=== PATIENT | male | born 2000 | race Caucasian/White ===

== ENCOUNTER 2023-05-12 05:02 | Emergency (ER) | payer OTHER, SELFPAY ==
[2023-05-12 05:05] VITALS: BP 165/76; PULSE 88; RESP 16; TEMP 36.8; O2SAT 99
--- NOTE | 2023-05-12 05:19 | ED.DENTAL ---
HPI - Dental/Oral General Chief complaint: Dental/Oral Stated complaint: dental abcess Time Seen by Provider: 05/12/23 05:14 History of Present Illness HPI Narrative: Patient noticed that about a day and a half ago he started having some swelling to the left lower jaw, he has a bad tooth. Cannot remember the last time he saw dentist Related Data Allergies Allergy/AdvReac Type Severity Reaction Status Date / Time No Known Allergies Allergy Verified 05/12/23 05:17 Review of Systems Review of Systems: CONST: No fever. HEENT: Tooth pain/jaw swelling C/V: No chest pain RESP: No difficulty breathing GI: No nausea/vomiting : No dysuria. M/S: No joint pain. SKIN: No rash. NEURO: [No focal numbness or weakness] Exam Narrative: EXAMINATION OF ORGAN SYSTEMS/BODY AREAS: Constitutional: Vital signs per nursing GENERAL:[No acute distress, non-toxic appearing.] HEAD: Slight mandibular swelling EYES: EOMI, conjunctiva normal ENT: Left lower molar caries, some swelling to left lower jaw without any fluctuance LUNGS: Nonlabored breathing. HEART: [Regular rate and rhythm] EXT: Normal range of motion SKIN: [No rashes or lesions.] NEURO: [Alert and oriented x 3. No gross focal sensory or strength deficits.] PSYCH: Normal affect Course Vital Signs Vital signs: Vital Signs Temperature 98.2 F 05/12/23 05:05 Pulse Rate 88 05/12/23 05:05 Respiratory Rate 16 05/12/23 05:05 Blood Pressure 165/76 H 05/12/23 05:05 Pulse Oximetry 99 05/12/23 05:05 Oxygen Delivery Room Air 05/12/23 05:05 Temperature 98.2 F 05/12/23 05:05 Pulse Rate 88 05/12/23 05:05 Respiratory Rate 16 05/12/23 05:05 Blood Pressure 165/76 H 05/12/23 05:05 Pulse Oximetry 99 05/12/23 05:05 Oxygen Delivery Room Air 05/12/23 05:05 MDM - Dental/Oral MDM Narrative Medical decision making narrative: ED COURSE AND MEDICAL DECISION MAKING: Patient with worsening dental pain and dental decay. No palpable abscess. No systemic signs or symptoms. Follow-up instructions given for dental/oral surgery clinics. Antiobiotics prescription provided. Patient was given return precautions and discharged home in stable condition. Discharge Plan Discharge Clinical Impression: Dental abscess Patient Disposition: Home, Self-Care Condition: Stable Instructions: Antibiotic Form, Dental Abscess (ED) Additional Instructions: Please follow up with the dentist; you can always return for any further issues. Prescriptions: New amoxicillin 500 mg capsule 500 mg PO Q8H 7 Days Qty: 21 0RF Follow-up/Referrals: Stanislav,Lorie Wade MD [Primary Care Provider] -
== END 2023-05-12 05:42 | disposition home or self-care (01) ==
LOC: ANHED 05:36
PROVIDERS: Emergency Provider Emergency Medicine; PCP Pediatrics Adolescent Medicine
DX: K04.7 Periapical abscess without sinus (principal)
CPT/HCPCS: 99283